=== PATIENT | female | born 1990 | race African-American/Black ===

== ENCOUNTER 2017-11-11 15:43 | Emergency (ER) | payer OTHER ==
[~2017-11-11] VITALS: Ht 172.7 cm; Wt 60.7 kg
[~2017-11-11 15:43] MED LIST: ANAPROX DS550 M1 PO; CHILDREN'S100 MG/51 PO; CIPRO500 MG PO; DOXYCYCLINE HY100 MG PO; FEOSOL325 MG PO; FLAGYL500 MG PO; KEFLEX500 MG PO; MACROBID100 MG PO; METHERGINE0.2 MG PO; MICONAZOLE 11 EACH VG; Motrin PO; NAPROSYN500 MG PO; NOHOMEMEDS; PERCOCET 5/31 TABLET PO; PRENATAL TABLE1 EAC3 PO; PYRIDIUM100 MG PO; PYRIDIUM200 MG PO; Procardia XL,Adalat PO; REGLAN10 MG PO; SLEEP AID25 M1 PO; TYLENOL EXTRA500 MG PO; VITAMIN B-6100 MG PO; ZOFRAN4 MG PO
[2017-11-11 18:46] LABS: APPEARANCE CLOUDY ((CLEAR)); BILIRUBIN NEGATIVE; BLOOD NEGATIVE; COLOR AMBER ((YELLOW)); GLUCOSE (STRIP) NEGATIVE; KETONES NEGATIVE; LEUKOCYTES MODERATE; NITRITE NEGATIVE; PROTEIN (STRIP) 30; SPECIFIC GRAVITY 1.025 (1.000-1.030)
[2017-11-11] MEDS ORDERED: CLEOCIN150 MG PO (18:46)
[2017-11-11 19:14] LABS: SOURCE SWAB
[2017-11-11 19:20] LABS: BACTERIA 2+ /HPF; EPITHELIAL CELLS 4+ /HPF; MUCUS 4+ /LPF; RED BLOOD CELLS 0-5 /HPF (0-5); UCUL ADDED? YES; WHITE BLOOD CELLS 40-50 /HPF (0-5)
[2017-11-11 20:06] VITALS: BP 116/88
[2017-11-11] MEDS ORDERED: CLONIDINE HCL0.1 MG PO (20:06)
[2017-11-11] MEDS ORDERED: TRAZODONE HCL50 MG PO (20:06)
[2017-11-11 20:54] LABS: CANDIDA DNA PROBE NEGATIVE; GARDNERELLA DNA PROBE POSITIVE; TRICHOMONAS DNA PROBE NEGATIVE
== END 2017-11-11 20:07 | disposition home or self-care (01) ==
LOC: EME 15:43
PROVIDERS: Physician Assistant Medical
DX: H00.013 Hordeolum externum right eye, unspecified eyelid (principal); N72 Inflammatory disease of cervix uteri; F11.20 Opioid dependence, uncomplicated; I10 Essential (primary) hypertension; F17.200 Nicotine dependence, unspecified, uncomplicated; Z87.440 Personal history of urinary (tract) infections; Z91.040 Latex allergy status
CPT/HCPCS: 81003; 87086; 87210; 87480; 87491; 87510; 87591; 87660; 90839; 99281; 99285; J0696